=== PATIENT | male | born 1985 | race Caucasian/White ===

== ENCOUNTER 2018-08-07 10:32 | Emergency (ER) | payer OTHER ==
[2018-08-07 10:36] VITALS: BP 133/93; PULSE 93; TEMP 97.8; BMI 29.0
[2018-08-07] MEDS ORDERED: TOBRAMYCIN 0.3% OPHTH SOLN 5 ML BOTTLE OD ONE (10:36)
--- NOTE | 2018-08-07 10:36 | PDOC ---
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 He removed it. There is slight irritation , redness, but no decreased or blurred vision Review of systems: As noted above, no change in vision, including blurred vision , double vision. No deep pain. Past medical history: Healthy male, no active medical or surgical problems Social/family history reviewed and noncontributory Physical exam: Alert and oriented no acute distress cheerful and cooperative Afebrile, vital signs normal Right eye: Pupil 4 mm round and reactive to light and accommodation. Anterior chamber clear. Cornea clear. Fundus is benign with good visualization of the vessels. There is conjunctival injection medially, probably the site of injury. There is no ciliary flush. There is no puncture apparent, no foreign body, and no edema. Visual acuity is intact as measured with the eye chart Impression: Superficial conjunctival injury, no involvement of the cornea or deep structures of the eye. No foreign body visualized. No pain or visual change. Plan: Antibiotic drops, follow-up fermentologist if any further symptoms develop. Past History - Past Medical History Allergies/Adverse Reactions: Allergies Allergy/AdvReac Type Severity Reaction Status Date / Time No Known Allergies Allergy Verified 08/07/18 10:33 Home Medications: Ambulatory Orders NK [No Known Home Medication] 08/07/18 COPD: No Other medical history: SEASONAL ALLERGIES - Suicide/Smoking/Psychosocial Hx Smoking History: Never smoked Have you smoked in the past 12 months: No Information on smoking cessation initiated: No Hx Alcohol Use: No *Physical Exam - Vital Signs Last Vital Signs Temp Pulse Resp BP Pulse Ox 97.8 F 93 H 18 133/93 100 08/07/18 10:32 08/07/18 10:32 08/07/18 10:32 08/07/18 10:32 08/07/18 10:32 *DC/Admit/Observation/Transfer Diagnosis at time of Disposition: Abrasion of conjunctiva, right Qualifiers: Encounter type: initial encounter Qualified Code(s): S05.01XA - Injury of conjunctiva and corneal abrasion without foreign body, right eye, initial encounter - Discharge Dispostion Disposition: HOME Condition at time of disposition: Stable Decision to Admit order: No - Referrals Referrals: Mike Lopez MD [Staff Physician] - 24 hours - Patient Instructions Additional Instructions: Antibiotic drops every 2 hours as directed. Recheck fermentologist in 24-48 hours if there is any persistent irritation, change of vision, drainage. Return to ER if unable to arrange follow-up as directed. Always wear adequate safety goggles when cutting or sawing - Post Discharge Activity
[2018-08-07] MEDS ORDERED: TOBRAMYCIN 0.3% OPHTH SOLN 5 ML BOTTLE ONE (10:45)
== END 2018-08-07 11:05 | disposition home or self-care (01) ==
LOC: FER 10:32
DX: S05.01XA Injury of conjunctiva and corneal abrasion without foreign body, right eye, initial encounter (principal); W22.8XXA Striking against or struck by other objects, initial encounter; Y93.89 Activity, other specified; Y92.9 Unspecified place or not applicable
CPT/HCPCS: 99282-25

== ENCOUNTER 2021-03-03 14:32 | Emergency (ER) | payer OTHER ==
[2021-03-03 14:40] VITALS: BP 143/91; PULSE 98; TEMP 98.9; BMI 26.9
== END 2021-03-03 16:04 | disposition home or self-care (01) ==
LOC: FER 14:32
DX: M25.571 Pain in right ankle and joints of right foot (principal)
CPT/HCPCS: 73610-TC-LT-FY; 73630-TC-LT; 99283-25

== ENCOUNTER 2022-08-23 12:14 | Emergency (ER) | payer OTHER ==
[2022-08-23 12:28] VITALS: BP 132/90; PULSE 85; RESP 15; TEMP 98.4; BMI 25.3
[2022-08-23 12:43] LABS: CALCIUM OXALATE CRYSTALS MODERATE /hpf (NONE SEEN)
[2022-08-23 13:07] LABS: MCH 30.1 pg (25.7-33.7); MEAN CELL VOLUME 88.6 fl (80-96); MEAN PLT VOLUME 9.4 fl (7.5-11.1); PLATELET COUNT 409.4 10^3/uL (134-434); RBC 4.97 10^6/uL (4.00-5.60); RDW 13.5 % (11.9-15.9); WHITE BLOOD COUNT 9.7 10^3/uL (4.0-10.8)
[2022-08-23 13:09] LABS: PLATELET ESTIMATE ADEQUATE
[2022-08-23 13:12] LABS: ALBUMIN 4.3 g/dl (3.4-5.0); BILIRUBIN,TOTAL 0.5 mg/dl (0.2-1); CALCIUM 9.7 mg/dl (8.5-10); POTASSIUM 4.3 mmol/L (3.5-5.1); TOT PROT 6.6 g/dl (6.4-8.2)
[2022-08-23 13:13] LABS: INR 1.27 (0.83-1.09); PROTHROMBIN TIME (PATIENT) 14.6 SEC (9.7-13.0)
[2022-08-23 13:16] LABS: ACTIVATED PTT 32.4 SECONDS (25.2-36.5)
== END 2022-08-23 15:47 | disposition home or self-care (01) ==
LOC: FER 12:14
DX: R31.0 Gross hematuria (principal); R80.9 Proteinuria, unspecified; N20.0 Calculus of kidney
CPT/HCPCS: 36415; 74176-TC; 80053; 81003; 81015; 82550; 85027; 85610; 85730; 87086; 99284-25

== ENCOUNTER 2022-09-11 13:49 | Day surgery (SDC) | payer OTHER ==
[2022-09-11 13:54] VITALS: BMI 25.0
[2022-09-11] MEDS ORDERED: LACTATED RINGERS SOLUTION 1000 ML INFUS.BAG IV ONE ×2 (14:03→15:38)
[2022-09-11] MEDS ORDERED: KETOROLAC TROMETHAMINE 15 MG/ML VIAL IVPUSH ONE ×2 (14:03→20:07)
[2022-09-11] MEDS ORDERED: ONDANSETRON 4 MG/2 ML VIAL IVPUSH ONE ×2 (14:09→16:20)
[2022-09-11] MEDS ORDERED: ONDANSETRON 4 MG/2 ML VIAL ONE ×2 (14:11→16:24)
[2022-09-11] MEDS ORDERED: KETOROLAC TROMETHAMINE 15 MG/ML VIAL ONE (14:11)
[2022-09-11 15:01] LABS: BASO % 0.4 % (0-2.0); HEMATOCRIT 42.3 % (35.4-49); HEMOGLOBIN 14.8 GM/dL (11.7-16.9); LYMPH % 5.8 % (8-40); MCH 30.2 pg (25.7-33.7); MCHC 35.1 g/dl (32.0-35.9); MEAN CELL VOLUME 85.9 fl (80-96); MEAN PLT VOLUME 10.5 fl (7.5-11.1); MONO % 4.4 % (3.8-10.2); NEUT % 89.4 % (42.8-82.8); PLATELET COUNT 315 10^3/uL (134-434); RBC 4.92 M/mm3 (4.00-5.60); WHITE BLOOD COUNT 16.6 K/mm3 (4.0-10.0)
[2022-09-11 15:02] LABS: INR 1.26 (0.83-1.09); PROTHROMBIN TIME (PATIENT) 14.6 SEC (9.7-13.0)
[2022-09-11 15:05] LABS: ACTIVATED PTT 33.1 SECONDS (25.2-36.5)
[2022-09-11 15:21] LABS: POTASSIUM 4.3 mmol/L (3.5-5.1)
[2022-09-11 15:23] LABS: CALCIUM 10.3 mg/dL (8.5-10.1)
[2022-09-11 15:24] LABS: ALBUMIN 4.4 g/dl (3.4-5.0)
[2022-09-11 15:27] LABS: CREATININE 1.3 mg/dL (0.55-1.3)
[2022-09-11 15:28] LABS: BILIRUBIN,TOTAL 0.7 mg/dL (0.2-1); TOT PROT 7.3 g/dl (6.4-8.2)
[2022-09-11 15:31] LABS: EPI CELLS 6 /uL (0-25.1); HYALINE CASTS 0 /uL (0-3.1); PH,URINE 6.5 (5.0-8.0); URINE APPEARANCE CLEAR; URINE BACTERIA 9 /uL (0-1359); URINE BILIRUBIN NEGATIVE (NEGATIVE); URINE COLOR YELLOW; URINE GLUCOSE (UA) NEGATIVE (NEGATIVE); URINE KETONE 3+ (NEGATIVE); URINE LEUK ESTERASE NEGATIVE (NEGATIVE); URINE NITRITE NEGATIVE (NEGATIVE); URINE PROTEIN 1+ (NEGATIVE); URINE RBC 886 /uL (0-23.9); URINE UROBILINOGEN 0.2 mg/dL (0.2-1.0); URINE WBC 4 /uL (0-25.8)
[2022-09-11] MEDS ORDERED: CEFTRIAXONE 1,000 MG in DEXTROSE 5%-WATER - 50 ML IVPB ONE (16:12)
[2022-09-11] MEDS ORDERED: HYDROmorphone HCl 2 MG/ML VIAL IVPUSH ONE (16:17)
[2022-09-11] MEDS ORDERED: CEFTRIAXONE 1 GM/50 ML BAG ONE (16:17)
[2022-09-11] MEDS ORDERED: HYDROmorphone HCl 2 MG/ML VIAL ONE (16:24)
[2022-09-11] MEDS ORDERED: ONDANSETRON 4 MG/2 ML VIAL IVPUSH PRN ×2 (20:08→21:46)
[2022-09-11] MEDS ORDERED: LACTATED RINGERS SOLUTION 1,000 ML/1,000 ML INFUS.BAG IV SCH (20:15)
[2022-09-11] MEDS ORDERED: DEXTROSE 5%-0.45% SALINE 1,000 ML IV SCH (21:45)
[2022-09-11] MEDS ORDERED: ACETAMINOPHEN 1000 MG/100 ML BAG IVPB PRN (21:45)
[2022-09-12 08:17] LABS: BASO % 0.5 % (0-2.0); EOS % 0.6 % (0-4.5); HEMATOCRIT 35.8 % (35.4-49); HEMOGLOBIN 12.4 GM/dL (11.7-16.9); LYMPH % 17.2 % (8-40); MCH 29.6 pg (25.7-33.7); MCHC 34.6 g/dl (32.0-35.9); MEAN CELL VOLUME 85.6 fl (80-96); MEAN PLT VOLUME 9.9 fl (7.5-11.1); MONO % 10.9 % (3.8-10.2); NEUT % 70.8 % (42.8-82.8); PLATELET COUNT 253 10^3/uL (134-434); RBC 4.18 M/mm3 (4.00-5.60); RDW 12.9 % (11.9-15.9); WHITE BLOOD COUNT 9.9 K/mm3 (4.0-10.0)
[2022-09-12] MEDS ORDERED: KETOROLAC TROMETHAMINE 30 MG/1 ML VIAL IVPUSH ONE (08:30)
[2022-09-12 08:31] LABS: POTASSIUM 4.4 mmol/L (3.5-5.1)
[2022-09-12 08:36] LABS: BLOOD UREA NITROGEN 16.6 mg/dL (7-18)
[2022-09-12 08:39] LABS: CREATININE 1.7 mg/dL (0.55-1.3)
[2022-09-12 08:41] LABS: BILIRUBIN,TOTAL 0.6 mg/dL (0.2-1)
[2022-09-12 08:42] LABS: ALBUMIN 3.1 g/dl (3.4-5.0); TOT PROT 5.2 g/dl (6.4-8.2)
[2022-09-12] MEDS ORDERED: PROMETHAZINE HCL 25 MG/1 ML VIAL IVPB PRN ×2 (09:31→11:34)
[2022-09-12] MEDS ORDERED: ONDANSETRON 4 MG/2 ML VIAL IVPUSH PRN ×3 (09:31→11:34)
[2022-09-12] MEDS ORDERED: LACTATED RINGERS SOLUTION 1,000 ML IV SCH ×2 (09:45→11:34)
[2022-09-12] MEDS ORDERED: ENOXAPARIN NA (PORCINE) 40 MG/0.4 ML DISP.SYRIN SQ SCH (10:00)
[2022-09-12] MEDS ORDERED: CEFTRIAXONE 1 GM in DEXTROSE 5%-WATER - 50 ML IVPB SCH (10:00)
[2022-09-12] MEDS ORDERED: PROPOFOL 20 ML ONE (10:46)
[2022-09-12] MEDS ORDERED: MIDAZOLAM HCL 2 MG/2 ML SINGLE DOSE VIAL ONE (10:46)
[2022-09-12] MEDS ORDERED: LIDOCAINE HCL/PF 2% SDV 5ML VIAL ONE (10:47)
[2022-09-12] MEDS ORDERED: IOHEXOL 300 MG/ML INFUS..BTL IV ONE (11:12)
[2022-09-12] MEDS ORDERED: DEXAMETHASONE SOD PHOSPHATE 4 MG/1 ML VIAL ONE ×2 (11:12)
[2022-09-12] MEDS ORDERED: ACETAMINOPHEN 1000 MG/100 ML BAG IVPB ONE (11:32)
[2022-09-12] MEDS ORDERED: DEXTROSE 5%-0.45% SALINE 1,000 ML IV SCH (11:34)
[2022-09-12] MEDS ORDERED: ACETAMINOPHEN 1000 MG/100 ML BAG IVPB PRN (11:34)
[2022-09-12 15:22] VITALS: BP 103/68; PULSE 75; RESP 19; TEMP 98.1
[2022-09-13] MEDS ORDERED: CEFTRIAXONE 1 GM in DEXTROSE 5%-WATER - 50 ML IVPB SCH (10:00)
[2022-09-13] MEDS ORDERED: ENOXAPARIN NA (PORCINE) 40 MG/0.4 ML DISP.SYRIN SQ SCH (10:00)
== END 2022-09-12 18:20 | disposition home or self-care (01) ==
LOC: JER 13:49 → JERBED 17:44 → UNDOADMIN 17:44 → JERBED 18:38 → J6S 18:38 → JASUSAT 09-12 10:15 → J6S 09-12 10:21 → JASUSAT 09-12 18:20
PROVIDERS: ATTEND Internal Medicine
PROC: 0T778DZ Dilation of Left Ureter with Intraluminal Device, Via Natural or Artificial Opening Endoscopic (ICD-10-PCS; principal; 2022-09-12 11:00)
DX: N13.2 Hydronephrosis with renal and ureteral calculous obstruction (principal)
CPT/HCPCS: 0241U-QW; 36415; 74177-TC; 76000-TC-FY; 80053; 81003; 85025; 85610; 85730; 87086; 94760; 99285-25; C2617; Q9967

== ENCOUNTER 2022-10-08 14:31 | Emergency (ER) | payer OTHER ==
[2022-10-08 14:47] VITALS: BP 118/78; PULSE 87; RESP 18; TEMP 98.1; BMI 25.0
[2022-10-08 15:23] LABS: EPITHELIAL CELLS FEW /hpf
== END 2022-10-08 16:31 | disposition home or self-care (01) ==
LOC: FER 14:31
DX: R30.0 Dysuria (principal); R30.9 Painful micturition, unspecified; N34.2 Other urethritis
CPT/HCPCS: 36415; 81003; 81015; 87086; 87491; 87591; 99283-25

== ENCOUNTER 2022-12-11 17:39 | Emergency (ER) | payer OTHER ==
[2022-12-11] MEDS ORDERED: ASPIRIN 325 MG TABLET PO ONE (18:44)
[2022-12-11 18:58] VITALS: BP 112/70; PULSE 75; RESP 16; TEMP 98.1; BMI 25.8
[2022-12-11] MEDS ORDERED: ASPIRIN 81 MG CHEWABLE TABLETS ONE (19:17)
[2022-12-11 19:37] LABS: HEMATOCRIT 42.5 % (35.4-49); MCH 29.4 pg (25.7-33.7); MEAN PLT VOLUME 8.9 fl (7.5-11.1); RBC 4.78 10^6/uL (4.00-5.60); RDW 13.8 % (11.9-15.9); WHITE BLOOD COUNT 12.9 10^3/uL (4.0-10.8)
[2022-12-11 20:03] LABS: ALBUMIN 4.3 g/dl (3.4-5.0); CALCIUM 9.8 mg/dl (8.5-10.1); POTASSIUM 4.2 mmol/L (3.5-5.1); SGPT/ALT 19.8 U/L (7-52)
[2022-12-11 20:05] LABS: PLATELET ESTIMATE ADEQUATE
[2022-12-11 21:12] LABS: BILIRUBIN,TOTAL 0.5 mg/dL (0.2-1)
== END 2022-12-11 20:18 | disposition home or self-care (01) ==
LOC: FER 17:39
DX: R07.89 Other chest pain (principal); R51.9 Headache, unspecified; R11.0 Nausea; R42 Dizziness and giddiness; M54.2 Cervicalgia
CPT/HCPCS: 36415; 71046-TC-FY; 80053; 84484; 85025; 93005; 99285-25

== ENCOUNTER 2023-05-12 21:00 | Emergency (ER) | payer OTHER ==
[2023-05-12] MEDS ORDERED: KETOROLAC TROMETHAMINE 30 MG/1 ML VIAL IVPUSH ONE (22:35)
[2023-05-12] MEDS ORDERED: ONDANSETRON 4 MG/2 ML VIAL IVPUSH ONE (22:35)
[2023-05-12] MEDS ORDERED: SODIUM CHLORIDE 1,000 ML IV ONE (22:35)
[2023-05-12 23:01] VITALS: BP 109/60; PULSE 85; RESP 16; TEMP 98; BMI 25.8
[2023-05-12] MEDS ORDERED: ONDANSETRON 4 MG/2 ML VIAL ONE (23:05)
[2023-05-12] MEDS ORDERED: KETOROLAC TROMETHAMINE 30 MG/1 ML VIAL ONE (23:05)
[2023-05-12 23:08] LABS: HEMATOCRIT 48.7 % (35.4-49); HEMOGLOBIN 16.5 G/dL (11.7-16.9); MCH 29.5 pg (25.7-33.7); MCHC 33.8 g/dl (32.0-35.9); MEAN CELL VOLUME 87.4 fl (80-96); PLATELET COUNT 343.5 10^3/uL (134-434); RBC 5.57 10^6/uL (4.00-5.60); RDW 14.1 % (11.9-15.9); WHITE BLOOD COUNT 11.2 10^3/uL (4.0-10.8)
[2023-05-12 23:13] LABS: URIC ACID CRYSTALS FEW /hpf (NONE SEEN)
[2023-05-12 23:28] LABS: ALBUMIN 4.7 g/dl (3.4-5.0); BILIRUBIN,TOTAL 0.4 mg/dl (0.2-1); CALCIUM 10.5 mg/dl (8.5-10.1); CREATININE 1.2 mg/dl (0.6-1.3); POTASSIUM 4.2 mmol/L (3.5-5.1); TOT PROT 6.7 g/dl (6.4-8.2)
== END 2023-05-13 00:21 | disposition home or self-care (01) ==
LOC: FER 21:00
PROC: 3E0333Z Introduction of Anti-inflammatory into Peripheral Vein, Percutaneous Approach (ICD-10-PCS; principal; 2023-05-12)
PROC: 3E033GC Introduction of Other Therapeutic Substance into Peripheral Vein, Percutaneous Approach (ICD-10-PCS; 2023-05-12)
PROC: 3E0337Z Introduction of Electrolytic and Water Balance Substance into Peripheral Vein, Percutaneous Approach (ICD-10-PCS; 2023-05-12)
DX: N20.0 Calculus of kidney (principal); R10.30 Lower abdominal pain, unspecified
CPT/HCPCS: 36415; 74176-TC; 80053; 81003; 81015; 85027; 99284-25